=== PATIENT | female | born 1995 | race Caucasian/White ===

== ENCOUNTER 2022-08-19 16:03 | Inpatient (IN) | payer BC, SELFPAY ==
[2022-08-19] VITALS (17 sets, daily range): BP systolic 102–134; BP diastolic 61–89; PULSE 72–97; RESP 16; TEMP 36.2–36.6; BMI 29.1
[2022-08-19] MEDS: AMPICILLIN 2 GM/NS 100 ML 2 GM/100 ML BAG IVPB (17:05)
[2022-08-19] MEDS: LACTATED RINGERS 1,000 ML 125 ML IV CONT (17:06)
[2022-08-19] MEDS: DINOPROSTONE 10 MG VAG INSERT VAGINAL (17:22)
--- NOTE | 2022-08-19 17:36 | LDADM ---
This patient, Joaquina Damon, was admitted to Labor/Delivery/Recovery 108 on 08/19/22 at 16:03. Plans for labor, pain management and were discussed with patient. Patient/family oriented to hospital policies and general routines including ID bracelet, bed and alarms, visiting hours, pain management, procedures, bathroom and other care routines, personal items, smoking policy, room service/diet and guest tray routines, infant security routines, and visiting hours. Patient/Family are encouraged to report perceived risks to care and to ask questions if they do not understand what they are told or what they should do. See OBIX for further documentation.
[2022-08-19 18:23] LABS: Basophils Percent Auto 0.2 % (0.2-1.2); Eosinophils Percent Auto 0.2 % (0-4.4); Hematocrit 38.1 % (37.0-47.0); Hemoglobin 13.1 g/dL (12.0-15.0); Immature Granulocyte Absolute 0.06 K/mm3 (0.00-0.031); Immature Granulocyte Percent A 0.6 % (0-0.5); Lymphocytes Absolute Auto 1.69 K/mm3 (0.9-3.2); Lymphocytes Percent Auto 17.4 % (18.3-44.2); Mean Corpuscular HGB Conc 34.4 g/dl (32-36); Mean Corpuscular Hemoglobin 29.2 pg (26-34); Mean Corpuscular Volume 84.9 fl (80-100); Mean Platelet Volume 12.1 fl (7.4-10.4); Monocytes Absolute Auto 0.7 K/mm3 (0.1-0.6); Monocytes Percent Auto 6.8 % (2.6-8.5); Neutrophils Absolute Auto 7.3 K/mm3 (1.3-6.7); Neutrophils Percent Auto 74.8 % (45.5-73.1); Platelet Count Result 212 k/mm3 (150-375); Red Blood Count 4.49 M/mm3 (4.2-5.4); Red Cell Distribution Width 14.2 % (11.5-14.5); White Blood Count 9.7 K/mm3 (4.5-10.0)
--- NOTE | 2022-08-19 19:40 | WPDANESEPP ---
Anes - Eval Pre Procedure Procedure: labor epidural Date/Time: 08/19/22 19:40 Pre Op Diagnosis: Induction of Labor Patient Data Age: 26 Gender: F Height: 1.65 m Weight: 79.5 kg Last Vital Signs Temp 36.6 C 08/19/22 18:05 Pulse 88 08/19/22 19:00 BP 117/73 08/19/22 19:00 O2 Del Method Room Air 08/19/22 17:32 Allergies Allergy/AdvReac Type Severity Reaction Status Date / Time No Known Allergies Allergy Verified 08/19/22 17:45 Laboratory Tests 08/19/22 08/19/22 16:30 16:30 WBC 9.7 K/mm3 K/mm3 (4.5-10.0) RBC 4.49 M/mm3 M/mm3 (4.2-5.4) Hgb 13.1 g/dL g/dL (12.0-15.0) Hct 38.1 % % (37.0-47.0) MCV 84.9 fl fl (80-100) MCH 29.2 pg pg (26-34) MCHC 34.4 g/dl g/dl (32-36) RDW 14.2 % % (11.5-14.5) Plt Count 212 k/mm3 k/mm3 (150-375) MPV 12.1 fl H fl (7.4-10.4) Immature Gran % (Auto) 0.6 % H % (0-0.5) Neut % (Auto) 74.8 % H % (45.5-73.1) Lymph % (Auto) 17.4 % L % (18.3-44.2) [place] % (Auto) 6.8 % % (2.6-8.5) Eos % (Auto) 0.2 % % (0-4.4) Baso % (Auto) 0.2 % % (0.2-1.2) Lymph # (Auto) 1.69 K/mm3 K/mm3 (0.9-3.2) [place] # (Auto) 0.7 K/mm3 H K/mm3 (0.1-0.6) Eos # (Auto) 0.0 K/mm3 K/mm3 (0-0.3) Baso # (Auto) 0.0 K/mm3 K/mm3 (0.0-0.1) Abs Immat Gran (auto) 0.06 K/mm3 H K/mm3 (0.00-0.031) Absolute Neuts (auto) 7.3 K/mm3 H K/mm3 (1.3-6.7) Absolute Nucleated RBC 0.0 K/mm3 K/mm3 (0.0-0.012) Nucleated RBC % 0.0 % % (0.0-0.2) RPR Pending Patient hx anesthesia problems: none Family hx anesthesia problems: none Results Review: All pre-operative results and documents have been reviewed as part of the pre-operative evaluation. [facility] Family History Family History Mother Migraine Hypertension Crohn's disease Father Hypothyroidism Grandparent RA (rheumatoid arthritis) Grandparent Heart attack Epilepsy Color blind Hypertension Grandparent Kidney disease Social History Social History Smoking status: Never smoker Substance use: never Lack of Transportation: No Lack of Food: Never True Current Housing: I Have Housing Concerned About Future Housing: No Difficulty Paying Gas/Electric Bills: No Difficulty Paying for Meds: No Currently Unemployed: No Education: Master's Degree or Higher Difficulty w/ Childcare or Family Care: No Spiritual care concerns: No Exam Day of Procedure 08/19/22 19:40 Patient weight: overweight Heart: regular rate and rhythm Lungs: normal air movement Airway: Mallampati scale Neurological: alert and oriented
[2022-08-19] MEDS: AMPICILLIN 1 GM/NS 50 ML 1 GM/50 ML BAG IVPB (21:26)
[2022-08-20] VITALS (152 sets, daily range): BP systolic 93–144; BP diastolic 50–118; PULSE 65–283; RESP 16–18; TEMP 36.1–37.1; O2SAT 97–100
[2022-08-20] MEDS: AMPICILLIN 1 GM/NS 50 ML 1 GM/50 ML BAG IVPB ×5 (01:34→17:26)
[2022-08-20] MEDS: ACETAMINOPHEN 500 MG TABLET 1000 MG PO ×2 (06:29→16:39)
[2022-08-20] MEDS: OXYTOCIN 30 UNITS/NS 500 ML 30 UNITS/500 ML BAG IV CONT (06:46)
--- NOTE | 2022-08-20 08:43 | WPDOBADMIT ---
Obstetrics - Admit Note Admission Note: record reviewed. Additions to the history and/or subsequent changes in the physical findings follow. 26 y/o G1 at 39 1/7 weeks here for induction of labor. GBS pos. Cervidil overnight, has been withdrawn. She is feeling contractions. AVSS NST reactive TOCO: contractions every 2-4 min ABD soft, nontender, gravid, vertex EXT nontender Cervix 2-3 / 50 / -2. AROM with clear fluid. Vertex. A: IUP at term. GBS pos. P: Oxytocin. Ampicillin. Anticipate .
[2022-08-20] MEDS: LACTATED RINGERS 1,000 ML 125 ML IV CONT (09:54)
--- NOTE | 2022-08-20 12:08 | PM.OBPNLAB ---
Pain Control Date/time seen: 08/20/22 12:08 Comfortable with epidural. AVSS NST reactive TOCO: contractions every 2-4 min Cervix 3-4/50/-2. IUPC placed Continue labor.
[2022-08-20 16:00] LABS: Rapid Plasma Reagin Non-Reactive (NonReactive)
--- NOTE | 2022-08-20 18:24 | PM.OBPRVD ---
OB - Delivery Note Procedure Delivery date: 08/20/22 Procedure: Induction of labor with Events: Positive Group B Strep (GBS) Induction method: Per Cervidil Protocol Delivery augmentation: Rupture of Membranes and Pitocin Delivery monitor: External FHT, External Uterine and Internal Uterine Route of delivery: Laceration Description: Perineal - 2nd Degree Delivery repair: vicryl (3-0) Specimen: Yes (cord blood) Quantitative Blood Loss (ml): 240 Anesthesia type: Epidural Disposition: PACU Complications: None Narrative: 26 y/o G1 at 39 1/7 weeks gestation who presented to the hospital for induction of labor. Cervidil was placed overnight. She received ampicillin for GBS bacteruria. The following morning, the Cervidil was withdrawn and oxytocin was administered intravenously. Amniotomy was performed with return of clear fluid. She received an epidural for pain control. Her labor progressed and her cervix dilated completely. She pushed with good effort and delivered the 's head to the perineum, followed by the body. The nose and mouth were bulb suctioned. After a delay, the cord was clamped and cut. The infant was handed off the field. Cord blood was collected. The placenta delivered spontaneously and was grossly normal in appearance. The usual 3 vessel cord was noted. A second degree midline perineal laceration was sustained. This was reapproximated using 3 0 Vicryl in the usual layered fashion. Excellent hemostasis resulted as did excellent reapproximation of the normal anatomy. Needle and instrument counts were correct. The patient was taken to recovery room in stable condition. The went to the nursery in stable condition. I was present and scrubbed for the entire delivery. Baby Date of : 08/20/22 Time of : 17:59 Weeks of gestation at delivery: 39 Infant gender: Female Weight (pounds): 8 Weight (ounces): 8 presentation: vertex position: Right Occiput Anterior Placenta delivery description: Spontaneous and Normal Configuration Cord Vessel Description: 3 Vessels and Delayed Cord Clamping score one minute: 9 score five minutes: 9
--- NOTE | 2022-08-20 18:30 | PM.OBDSVD ---
DS: Admitting Diagnosis Discharge Date 08/22/22 Admitting Diagnosis IUP at 39 1/7 GBS bacteruria DS: Discharge Diagnosis Discharge Diagnosis (1) (normal spontaneous vaginal delivery): Code(s): O80 - Encounter for full-term uncomplicated delivery Status: Acute (2) GBS (group B streptococcus) UTI complicating : Code(s): O23.40 - Unspecified infection of urinary tract in , unspecified trimester; B95.1 - Streptococcus, group B, as the cause of diseases classified elsewhere Status: Acute OB - DS: Summary OB Procedures : None OB Procedures Intrapartum: Spontaneous Vag Delivery and GBS prophylaxis OB Procedures: : None Time Spent with Patient Time attestation: Total time spent providing and/or coordinating discharge services: DS: Data Data Completed and Pending Labs on day of discharge: Labs from last 24 hours 08/19/22 08/19/22 16:30 16:30 RPR Non-reactive Blood Type A Positive Antibody Screen Negative Discharge Plan Discharge Attending physician on discharge: Dank Carlson Discharging Clinician: Dank Carlson Patient Disposition: Home, Self-Care Activity: pelvic rest Diet: regular Discharge Instructions: Call or return if temperature above 100.4? F, increased abdominal pain, increased vaginal bleeding or any new problems. Stand Alone Forms: General Discharge Information Follow-up/Referrals: Dank Carlson MD [Physician] - 6 Weeks Discharge Medications: New ibuprofen 600 mg tablet 600 mg PO Q6H PRN (Reason: cramps) Qty: 30 0RF Continued Classic 28 mg iron- 800 mcg Tablet 1 tablet PO DAILY Date of admission: 08/19/22 16:03 Primary Care Provider: UNKNOWN,DOCTOR Admitting Provider: Dank Carlson Attending physician on admission: Dank Carlson Condition: Stable
[2022-08-20] MEDS: IBUPROFEN 600 MG TABLET PO (19:48)
[2022-08-20] MEDS: WITCH HAZEL 40 PADS 1 PAD TOPICAL (21:06)
[2022-08-20] MEDS: BENZOCAINE 20% AER SPR (*SP) 56 GM CAN 1 SPRAY TOPICAL (21:06)
[2022-08-21] MEDS: ACETAMINOPHEN 325 MG TABLET 650 MG PO ×2 (00:10→17:08)
[2022-08-21] MEDS: diphenhydrAMINE HCl CAP 25 MG CAPSULE (00:10)
[2022-08-21] MEDS: IBUPROFEN 600 MG TABLET PO ×3 (03:45→22:13)
[2022-08-21 05:33] LABS: Hematocrit 34.4 % (37.0-47.0); Hemoglobin 11.5 g/dL (12.0-15.0)
--- NOTE | 2022-08-21 08:39 | PM.OBPNVD ---
OB - PN: Subj Subjective Date/time seen: 08/21/22 08:39 Narrative: Pain OK. OB - PN: Obj Data Labs 08/21/22 03:40 Labs: Laboratory Results - last 24 hr 08/19/22 08/21/22 16:30 03:40 Hgb 11.5 L Hct 34.4 L RPR Non-reactive OB - PN A/P Plan Comments: A: PPD#1, doing well. P: Routine care. Exam Psych: Other: AVSS ABD soft, nontender, fundus firm EXT nontender
[2022-08-21 08:50] VITALS: BP 113/85; PULSE 88; RESP 16; TEMP 36.4; O2SAT 98
[2022-08-21] MEDS: MULTIVIT/MIN/PREN/FOL AC/IRON TABLET 1 TAB PO (09:00)
[2022-08-21 09:35] VITALS: PULSE 88; RESP 16; O2SAT 98
[2022-08-21 12:00] VITALS: PULSE 97; RESP 16; O2SAT 98
[2022-08-21 12:03] VITALS: BP 118/78; PULSE 97; RESP 16; TEMP 36.1; O2SAT 98
--- NOTE | 2022-08-21 13:02 | WPDANLDPN2 ---
Anes-Prog Note L&D Date/Time: 08/21/22 13:02 Neuro status: Neuro function grossly intact. Vital Signs: Last Vital Signs Temp 36.1 C L 08/21/22 12:03 Pulse 97 08/21/22 12:03 Resp 16 08/21/22 12:03 BP 118/78 08/21/22 12:03 Pulse Ox 98 08/21/22 12:03 O2 Del Method Room Air 08/21/22 09:35 Pain score (VAS): 0 I/O: Intake & Output 08/20/22 08/21/22 08/21/22 23:59 07:59 15:59 Intake Total 550 300 Output Total 323 Balance 227 300 Patient feedback: Patient satisfied with anesthetic care.
[2022-08-21] MEDS: DOCUSATE SODIUM 100 MG CAPSULE PO (17:10)
[2022-08-21 19:00] VITALS: BP 126/84; PULSE 81; RESP 16; TEMP 36.7; O2SAT 100
[2022-08-21] MEDS: diphenhydrAMINE HCl CAP 25 MG CAPSULE PO (22:30)
[2022-08-22 08:00] VITALS: PULSE 69; RESP 18; O2SAT 100
[2022-08-22 08:25] VITALS: BP 118/73; PULSE 69; RESP 18; TEMP 36.7; O2SAT 100
[2022-08-22] MEDS: MULTIVIT/MIN/PREN/FOL AC/IRON TABLET 1 TAB PO (09:00)
--- NOTE | 2022-08-22 10:01 | PM.OBPNVD ---
OB - PN: Subj Subjective Date/time seen: 08/22/22 10:01 Narrative: Pain OK. Would like to go home. OB - PN: Obj Data Labs 08/21/22 03:40 OB - PN A/P Plan Comments: A: PPD#2, doing well. P: Home to f/u 6 weeks. Exam Psych: Other: AVSS ABD soft, nontender, fundus firm EXT nontender
--- NOTE | 2022-08-22 13:44 | PC.NURSE ---
Patient viewed the discharge video Mother & Baby Care, The First Two Weeks . Patient was given the opportunity and encouraged to ask questions. Patient verbalized understanding of information shared and has been given the mother/baby guide for home reference.
[2022-08-23 11:41] VITALS: BP 120/76; PULSE 81; RESP 18; TEMP 37.2; O2SAT 99
== END 2022-08-22 13:25 | disposition home or self-care (01) | DRG 806 ==
LOC: ANHLDR 08-20 18:31 → ANHOB2 08-20 21:27
PROVIDERS: Admitting Provider Obstetrics & Gynecology; Visit Provider Obstetrics & Gynecology
DX: O99.824 Streptococcus B carrier state complicating childbirth (principal); N39.0 Urinary tract infection, site not specified; Z37.0 Single live birth; O75.3 Other infection during labor; O70.1 Second degree perineal laceration during delivery; O76 Abnormality in fetal heart rate and rhythm complicating labor and delivery; Z3A.39 39 weeks gestation of pregnancy
CPT/HCPCS: 36415; 85014; 85018; 85025; 86592; 86850; 86900; 86901; A9270; J0290; J2590; J2795; J7120

== ENCOUNTER 2023-11-29 11:47 | Outpatient (CLI) | payer BC, SELFPAY ==
--- NOTE | ~2023-11-29 | US_ITS ---
US soft tissue head and neck 11/29/2023 11:59 Indication: Localized enlarged lymph nodes. Procedure: High-resolution Limited ultrasound of the right neck Comparison: No prior studies for comparison. Findings: There are enlarged right cervical lymph nodes in the area palpable concern, largest measuri ng 3.4 x 2.2 x 0.7 cm. No discrete fluid collections. Impression: 1: Right cervical lymphadenopathy corresponding to palpable abnormality. Consider further evaluation with contrast-enhanced CT neck. Reviewed, dictated and finalized at location A. Impression: 1: Right cervical lymphadenopathy corresponding to palpable abnormality. Consid er further evaluation with contrast-enhanced CT neck.
== END 2023-11-29 11:48 ==
LOC: MICIMG 11:48
PROVIDERS: PCP Family Medicine; Visit Provider Physician Assistant
DX: R59.0 Localized enlarged lymph nodes (principal)
CPT/HCPCS: 76536

== ENCOUNTER 2023-12-03 11:46 | Outpatient (CLI) | payer BC, SELFPAY ==
--- NOTE | ~2023-12-03 | CT_ITS ---
EXAMINATION: CT soft tissue neck w con DATE: 12/03/2023 12:10 INDICATION: Generalized enlarged lymph nodes. TECHNIQUE: Computed tomography (CT) of the neck was performed with 75 mL Omnipaque-350 intravenous co ntrast. Automated exposure control and iterative reconstruction technique were employed. The dose-johanna gth product was 370.25 mGy-cm. COMPARISON: Ultrasound 11/29/2023 FINDINGS: A skin marker overlies right neck. There are no pathologically enlarged lymph nodes. The ce rvical carotid arteries are normal. There is mucosal thickening in the paranasal sinuses. The mastoid air cells are normal. There is mild cervical spondylosis. IMPRESSION: 1. No abnormal lymphadenopathy. Reviewed, dictated and finalized at location A.
== END 2023-12-03 11:47 ==
LOC: MICIMG 11:47
PROVIDERS: PCP Family Medicine; Referring Provider Family Medicine; Visit Provider Physician Assistant
DX: R59.1 Generalized enlarged lymph nodes (principal)
CPT/HCPCS: 70491; Q9967

== ENCOUNTER 2025-02-15 16:01 | Inpatient (IN) | payer BC, SELFPAY ==
[2025-02-15] VITALS (12 sets, daily range): BP systolic 109–122; BP diastolic 66–83; PULSE 60–90; TEMP 36.6; BMI 29.0
--- NOTE | 2025-02-15 16:34 | LDADM ---
This patient, Joaquina Damon, was admitted to Labor/Delivery/Recovery 105 on 02/15/25 at 16:01. Plans for labor, pain management and were discussed with patient. Patient/family oriented to hospital policies and general routines including ID bracelet, bed and alarms, visiting hours, pain management, procedures, bathroom and other care routines, personal items, smoking policy, room service/diet and guest tray routines, infant security routines, and visiting hours. Patient/Family are encouraged to report perceived risks to care and to ask questions if they do not understand what they are told or what they should do. See OBIX for further documentation.
[2025-02-15] MEDS: DINOPROSTONE 10 MG VAG INSERT VAGINAL (16:58)
--- OUTSIDE RECORDS SUMMARY | 2025-02-15 17:12 | XMS_ITS | Clinical Summary ---
Author Organization [facility] Health Address [address] [place] [address] Care Team Providers Care Telephone Lines Repairer Name Role Phone Unavailable Primary Care Provider Unavailabl e Allergies No known active allergies Medications No known medications Active Problems No known active problems Social History Tobacco Use Types Packs/Day Years Used Date Smoking Tobacco: Never Smokeless Tobacco: Never Tobacco Cessation:Counseling Given: Not Answered Alcohol Use Standard Drinks/Week Comments Never 0 (1 standard drink = 0.6 oz pur e alcohol) Comments Unknown Sex and Gender Information Value Date Recorded Sex Assigned at Not on file Legal Sex Female 12:27 PM PDT Gender Identity Not on file Sexual Orientation Not on file Plan of Treatment Health Maintenance Due Date Last Done Comments Dental Oral Exam 01/01/2023 07/02/2022 Dental Prophylaxis 01/01/2023 07/02/2022 Dental X-Ray: Bitewings 01/01/2023 07/02/2022 Dental X-Ray: Full Mouth 07/03/2025 07/02/2022 Dental X-Ray: Panoramic 07/03/2025 07/02/2022 Meningococcal B Vaccine Aged Out No l onger eligible based on patient's age to complete this topic Procedures Procedure Name Priority Date/Time Associated Diagnosis Comments PANORAMIC RADIOGRAPHIC IMAGE Routine 07/02/2022 3:00 PM CDT PROPHYLAXIS - ADULT Routine 07/02/2022 3 :00 PM CDT INTRAORAL - COMPREHENSIVE SERIES OF RADIOGRAPHIC IMAGES Routine 07/02/2022 3:00 PM CDT COMPREHENSIVE ORAL EVALUATION - NEW OR ESTABLISHED PATIENT Routine 07/02/2022 3:00 PM CDT from Last 3 Months or Most Recently Relevant to [place] [id number] [facility] HMO
--- OUTSIDE RECORDS SUMMARY | 2025-02-15 17:12 | XMS_ITS | Encounter Summary ---
Author Organization [facility] Health Address [address] [place] [address] Care Team Providers Care Deep Fat Cook Fry Name Role Phone Unavailable Primary Care Provider Unavailabl e Prior Encounters Date Type Department Care Team Description 07/02/2022 Travel 07/02/2022 3:00 PM CDT Office Visit [facility] [address] [place] [address] Eber Arredondo, EARLENES Plan of Treatment Not on file Procedures Procedure Name Priority Date/Time Associated Diagnosis Comments ORAL HYGIENE INSTRUCTIONS Routine 2021 3:00 PM CDT TOPICAL APPLICATION OF FLUORIDE VARNISH Routine 07/02/2022 3:00 PM CDT PROPHYLAXIS - ADULT Routine 07/02/2022 3 :00 PM CDT INTRAORAL PHOTO Routine 07/02/2022 3:00 PM CDT INTRAORAL - COMPREHENSIVE SERIES OF RADIOGRAPHIC IMAGES Routine 07/02/2022 3:00 PM CDT INTRAORAL PHOTO Routine 07/02/2022 3:00 PM CDT INTRAORAL PHOTO Routine 07/02/2022 3:00 PM CDT INTRAORAL PHOTO Routine 07/02/2022 3:00 PM CDT COMPREHENSIVE ORAL EVALUATION - NEW OR ESTABLISHED PATIENT Routine 07/02/2022 3:00 PM CDT PANORAMIC RADIOGRAPHIC IMAGE Routine 07/02/2022 3:00 PM CDT 18 LISSET AMALGAM FILLING Routine 07/02/2022 12:00 AM CDT 31 O COMPOSITE FILLING Routine 2 12:00 AM CDT 30 O COMPOSITE FILLING Routine 2 12:00 AM CDT 19 DO COMPOSITE FILLING Routine 07/02/20 22 12:00 AM CDT 14 MOL COMPOSITE FILLING Routine 022 12:00 AM CDT 4 DO COMPOSITE FILLING Routine 2 12:00 AM CDT 3 MO COMPOSITE FILLING Routine 2 12:00 AM CDT Visit Diagnoses Not on file Insurance [facility] [employer] [place] [id number] [facility]
[2025-02-15 17:13] LABS: Basophils Percent Auto 0.4 % (0.2-1.2); Eosinophils Percent Auto 0.2 % (0-4.4); Hematocrit 38.5 % (37.0-47.0); Hemoglobin 12.4 g/dL (12.0-15.0); Immature Granulocyte Absolute 0.08 K/mm3 (0.00-0.031); Immature Granulocyte Percent A 0.8 % (0-0.5); Lymphocytes Absolute Auto 2.22 K/mm3 (0.9-3.2); Lymphocytes Percent Auto 22.6 % (18.3-44.2); Mean Corpuscular HGB Conc 32.2 g/dl (32-36); Mean Corpuscular Hemoglobin 28.4 pg (26-34); Mean Corpuscular Volume 88.1 fl (80-100); Mean Platelet Volume 11.3 fl (7.4-10.4); Monocytes Absolute Auto 0.7 K/mm3 (0.1-0.6); Monocytes Percent Auto 7.3 % (2.6-8.5); Neutrophils Absolute Auto 6.7 K/mm3 (1.3-6.7); Neutrophils Percent Auto 68.7 % (45.5-73.1); Platelet Count Result 189 k/mm3 (150-375); Red Blood Count 4.37 M/mm3 (4.2-5.4); Red Cell Distribution Width 14.4 % (11.5-14.5); White Blood Count 9.8 K/mm3 (4.5-10.0)
[2025-02-15 17:44] LABS: Syphilis IgG/IgM Antibody Non-Reactive (Nonreactive)
[2025-02-15 17:52] LABS: HIV 1/2 Ab P24 Ag Result Negative (Negative)
--- NOTE | 2025-02-15 18:06 | P.PNAN_ITS ---
Anes - Initial Pre Proc Eval Procedure: labor epidural Date/Time: 02/15/25 18:06 Surgeon: Dank Carlson MD Pre Op Diagnosis: labor pain Pre Op Diagnosis: Induction of Labor Patient Data Age: 29 Gender: F Height: 1.65 m Weight: 79 kg Last Vital Signs Pulse 60 02/15/25 18:00 BP 118/68 02/15/25 18:00 O2 Del Method Room Air 02/15/25 16:31 Allergies Allergy/AdvReac Type Severity Reaction Status Date / Time amoxicillin (From Augmentin) Allergy Unknown Unknown Verified 02/15/25 16:54 clavulanic acid (From Allergy Unknown Unknown Verified 01/19/25 12:53 Augmentin) Home Medications ?Medication ?Instructions ?Recorded ?Confirmed ?Type vits no.126-ferrous fum 1 tablet PO DAILY 08/20/22 02/15/25 History 28 mg iron-folic acid 800 mcg tablet (Classic ) Laboratory Tests 02/15/25 16:22 WBC 9.8 K/mm3 (4.5-10.0) RBC 4.37 M/mm3 (4.2-5.4) Hgb 12.4 g/dL (12.0-15.0) Hct 38.5 % (37.0-47.0) MCV 88.1 fl (80-100) MCH 28.4 pg (26-34) MCHC 32.2 g/dl (32-36) RDW 14.4 % (11.5-14.5) Plt Count 189 k/mm3 (150-375) MPV 11.3 H fl (7.4-10.4) Immature Gran % (Auto) 0.8 H % (0-0.5) Neut % (Auto) 68.7 % (45.5-73.1) Lymph % (Auto) 22.6 % (18.3-44.2) [place] % (Auto) 7.3 % (2.6-8.5) Eos % (Auto) 0.2 % (0-4.4) Baso % (Auto) 0.4 % (0.2-1.2) Lymph # (Auto) 2.22 K/mm3 (0.9-3.2) [place] # (Auto) 0.7 H K/mm3 (0.1-0.6) Eos # (Auto) 0.0 K/mm3 (0-0.3) Baso # (Auto) 0.0 K/mm3 (0.0-0.1) Abs Immat Gran (auto) 0.08 H K/mm3 (0.00-0.031) Absolute Neuts (auto) 6.7 K/mm3 (1.3-6.7) Absolute Nucleated RBC 0.000 K/mm3 (0.0-0.012) Nucleated RBC % 0.0 % (0.0-0.2) Syphilis IgG/IgM Ab Non-reactive (Nonreactive) HIV 1&2 Ab/P24 Ag 4thGn Negative (Negative) Blood Type A Positive Antibody Screen Negative Patient hx anesthesia problems: none Family hx anesthesia problems: none Results Review: All pre-operative results and documents have been reviewed as part of the pre- operative evaluation. [facility] Surgical History Surgical History H/O wisdom tooth extraction Family History Family History Mother Crohn's disease Migraine Hypertension Hypercholesteremia Father Hypothyroidism Grandparent RA (rheumatoid arthritis) Grandparent Epilepsy Heart attack Color blind Hypertension Grandparent Kidney disease Social History Social History Smoking status: Never smoker Substance use: never Do You Feel Safe in your Home?: Yes Lack of Transportation: No Lack of Food: Never True Current Housing: I Have Housing Concerned About Future Housing: No Difficulty Paying Gas/Electric Bills: No Difficulty Paying for Meds: No Currently Unemployed: No Education: Master's Degree or Higher Difficulty w/ Childcare or Family Care: No Spiritual care concerns: No Anes - Eval Final PreProcedure Day of Procedure 02/15/25 18:06 Heart: regular rate and rhythm Lungs: clear to auscultation and normal air movement Airway: Mallampati scale class 1 Neurological: alert and oriented ASA classification: II Anesthetic plan: proceed Anesthesia type and monitoring: regional epidural and standard monitoring Results Review: All pre-operative results and documents have been reviewed as part of the pre- operative evaluation. Informed Consent: The patient's anesthetic plan and its attendant risks and benefits were discussed with the patient/family/POA. Questions were solicited and answers provided to the satisfaction of the patient/family/POA.
[2025-02-16] VITALS (111 sets, daily range): BP systolic 84–134; BP diastolic 35–91; PULSE 39–141; RESP 18; TEMP 36.6–37.1; O2SAT 84–100
[2025-02-16] MEDS: LACTATED RINGERS 1,000 ML 125 ML IV CONT ×2 (00:53→01:09)
[2025-02-16] MEDS: OXYTOCIN 30 UNITS/NS 500 ML 30 UNITS/500 ML BAG 999 UNITS IV CONT (05:22)
--- NOTE | 2025-02-16 05:33 | WPDOBADMIT ---
Obstetrics - Admit Note Admission Note: record reviewed. Additions to the history and/or subsequent changes in the physical findings follow. 29 y/o at 39 4/7 weeks here for induction of labor. GBS neg. uncomplicated. Cervidil placed last night. Began to have painful contractions. Now comfortable with epidural. Cervix found to be 4 cm dilated, so the Cervidil was withdrawn. AVSS NST reactive TOCO: contractions every 2-3 min ABD soft, nontender, gravid, vertex EXT nontender Cervix C/+2 See delivery note.
--- NOTE | 2025-02-16 05:37 | PM.OBPRVD ---
OB - Vaginal Delivery Note Procedure Delivery date: 02/16/25 Induction method: Per Cervidil Protocol Delivery monitor: External FHT and External Uterine Route of delivery: Episiotomy description: None Laceration Description: Perineal - 1st Degree Delivery repair: vicryl (3-0) Specimen: Yes (Cord blood) Quantitative Blood Loss (ml): 280 Anesthesia type: Epidural Disposition: PACU Complications: None Narrative: 29 y/o at 39 4/7 weeks gestation who presented to the hospital for induction of labor. Cervidil was placed overnight. She received an epidural for pain control. Her labor progressed without further stimulation and her cervix dilated completely. She delivered the infant's head to the perineum, followed by the body. The nose and mouth were bulb suctioned. After a delay, the cord was clamped and cut. The was handed off the field. Cord blood was collected. The placenta delivered spontaneously and was grossly normal in appearance. The usual 3 vessel cord was noted. A first degree midline perineal laceration was sustained. This was reapproximated using 3 0 Vicryl in the usual layered fashion. Excellent hemostasis resulted as did excellent reapproximation of the normal anatomy. Needle and instrument counts were correct. The patient was taken to recovery room in stable condition. The went to the nursery in stable condition. I was present and scrubbed for the entire delivery. [place] Baby Date of : 02/16/25 Time of : 05:15 Gestational Age by Date: 39 Infant gender: Female Weight (pounds): 8 Weight (ounces): 5 presentation: vertex position: Left Occiput Anterior Placenta delivery description: Spontaneous and Normal Configuration Cord Vessel Description: 3 Vessels and Delayed Cord Clamping score one minute: 8 score five minutes: 9
--- NOTE | 2025-02-16 05:39 | P.DS_ITS ---
DS: Admitting Diagnosis Discharge Date 02/17/25 Admitting Diagnosis IUP at 39 4/7 weeks DS: Discharge Diagnosis Discharge Diagnosis (1) (normal spontaneous vaginal delivery): Code(s): O80 - Encounter for full-term uncomplicated delivery Status: Acute OB - DS: Summary OB Procedures : None OB Procedures Intrapartum: Spontaneous Vag Delivery OB Procedures: : None Peripartum Data Laceration Description: Perineal - 1st Degree Episiotomy description: None Time Spent with Patient Time attestation: Total time spent providing and/or coordinating discharge services: DS: Data Data Completed and Pending Labs on day of discharge: Labs from last 24 hours 02/15/25 16:22 WBC 9.8 RBC 4.37 Hgb 12.4 Hct 38.5 MCV 88.1 MCH 28.4 MCHC 32.2 RDW 14.4 Plt Count 189 MPV 11.3 H Immature Gran % (Auto) 0.8 H Neut % (Auto) 68.7 Lymph % (Auto) 22.6 [place] % (Auto) 7.3 Eos % (Auto) 0.2 Baso % (Auto) 0.4 Lymph # (Auto) 2.22 [place] # (Auto) 0.7 H Eos # (Auto) 0.0 Baso # (Auto) 0.0 Abs Immat Gran (auto) 0.08 H Absolute Neuts (auto) 6.7 Absolute Nucleated RBC 0.000 Nucleated RBC % 0.0 Syphilis IgG/IgM Ab Non-reactive HIV 1&2 Ab/P24 Ag 4thGn Negative Blood Type A Positive Antibody Screen Negative Discharge Plan Discharge Attending physician on discharge: Dank Carlson Discharging Clinician: Dank Carlson Patient Disposition: Home Activity: pelvic rest Diet: regular Discharge Instructions: Call or return if temperature above 100.4? F, increased abdominal pain, increased vaginal bleeding or any new problems. Patient Language: Macedonian Stand Alone Forms: General Discharge Information Follow-up/Referrals: Dank Carlson MD [Physician] - 6 Weeks Discharge Medications: New ibuprofen 600 mg tablet 600 mg PO Q6H PRN (Reason: cramps) Qty: 30 0RF Continued Classic 28 mg iron- 800 mcg Tablet 1 tablet PO DAILY Date of admission: 02/15/25 16:01 Primary Care Provider: Sugey Lenz Admitting Provider: Dank Carlson Attending physician on admission: Dank Carlson Condition: Stable
[2025-02-16] MEDS: OXYTOCIN 30 UNITS/NS 500 ML 30 UNITS/500 ML BAG 125 UNITS IV CONT (05:53)
--- NOTE | 2025-02-16 07:45 | OBPPTRN ---
Patient transferred to post room #292 via wheelchair. Support person present. Oriented to unit, room, information board, rooming in, admission packet and security measures. Patient verbalizes understanding.
[2025-02-16] MEDS: MULTIVIT/MIN/PREN/FOL AC/IRON TABLET 1 TAB PO (07:59)
[2025-02-16] MEDS: DOCUSATE SODIUM 100 MG CAPSULE PO ×2 (07:59→16:07)
[2025-02-16] MEDS: IBUPROFEN 600 MG TABLET PO ×3 (08:06→22:16)
[2025-02-16] MEDS: ACETAMINOPHEN 325 MG TABLET 650 MG PO ×2 (08:48→18:59)
--- NOTE | 2025-02-16 13:35 | PC.NURSE ---
[id number]: Introductions were made, then consulted with patient to assess needs related to . Mom reports she plans to pump and bottle feed her infant with her expressed breast milk bc that is what worked for her with her first child. Reviewed with mom pumping instructions as well as cleaning, care, usage, that there should be no pain, pumping schedule for milk production, collection, and storage of human milk. Patient was assessed for correct placement, flange size, to pump for comfort and nipple stretching/stimulation for adequate milk production every 3 hours (8 times in 24 hours) 1-2 times at night. Parents are encouraged to record the pumping schedule on the feeding sheet.?Mother voiced understanding of the education shared along with mom/baby guide and the pump measurement, flange fit handout for additional resource information. Mother voiced understanding of information and will call if there is a request for assistance. Reported to the Primary RN
[2025-02-17 00:39] VITALS: BP 96/62; PULSE 67; RESP 16; TEMP 36.6; O2SAT 98
[2025-02-17 03:56] LABS: Hematocrit 34.7 % (37.0-47.0); Hemoglobin 11.6 g/dL (12.0-15.0)
[2025-02-17 04:00] VITALS: BP 96/64; PULSE 77; RESP 16; TEMP 36.5; O2SAT 100
[2025-02-17] MEDS: IBUPROFEN 600 MG TABLET PO (04:13)
[2025-02-17 07:25] VITALS: BP 111/73; PULSE 84; RESP 16; TEMP 36.4; O2SAT 99
--- NOTE | 2025-02-17 09:02 | P.PNOB_ITS ---
OB - PN: Subj Subjective Date/time seen: 02/17/25 09:02 Narrative: Pain OK. Would like to go home. OB - PN: Obj Data Labs 02/17/25 03:41 Labs: Laboratory Results - last 24 hr 02/17/25 03:41 Hgb 11.6 L Hct 34.7 L OB - PN A/P Plan day: 1 Comments: A: PPD#1, doing well. P: Home to f/u 6 weeks. Exam 2 Psych: Other: AVSS ABD soft, nontender, fundus firm EXT nontender
[2025-02-17] MEDS: ACETAMINOPHEN 325 MG TABLET 650 MG PO (09:10)
[2025-02-17] MEDS: DOCUSATE SODIUM 100 MG CAPSULE PO (09:11)
[2025-02-18 11:15] VITALS: BP 101/66; PULSE 82; RESP 18; TEMP 36.6; O2SAT 98
== END 2025-02-17 12:00 | disposition home or self-care (01) | DRG 807 ==
LOC: ANHLDR 02-16 05:41 → ANHOB2 02-16 07:54
PROVIDERS: Admitting Provider Obstetrics & Gynecology; PCP Family Medicine; Visit Provider Obstetrics & Gynecology
DX: O70.0 First degree perineal laceration during delivery (principal); Z37.0 Single live birth; Z3A.39 39 weeks gestation of pregnancy
CPT/HCPCS: 36415; 85014; 85018; 85025; 86593; 86703; 86850; 86900; 86901; A9270; G0432; J2590; J2795; J7120